=== PATIENT | female | born 1935 | race Caucasian/White ===

== ENCOUNTER 2021-10-20 09:49 | Inpatient (IN) | payer MEDICARE, OTHER ==
[~2021-10-20 09:49] MED LIST: Iopamidol 300 61% 100 ML VIAL FS ONE
[2021-10-20 10:16] LABS: #Basophils 0.1 10x3/uL (0.0-0.2); #Eosinphils 0.2 10x3/uL (0.0-0.5); #Monocytes 0.7 10x3/uL (0.0-1.1); #Neutrophils 5.1 10x3/uL (1.5-8.4); %Basophils 0.7 % (0.0-2.0); %Eosinophils 2.4 % (0.0-6.0); %Lymphocytes 30.3 % (18.0-47.0); %Monocytes 7.5 % (0.0-10.0); %Neutrophils 58.8 % (40.0-75.0); Hemoglobin 13.8 g/dL (12.0-15.5); Mean Corpuscular HGB CONC 33.3 g/dL (32.0-36.0); Mean Corpuscular Hemoglobin 30.5 pg (27.0-33.0); Mean Corpuscular Volume 91.6 fl (81.6-98.3); Mean Platelet Volume 10.8 fl (7.4-10.4); Platelet Count 239 10x3/uL (150-450); RBC Distribution Width 13.1 % (11.5-14.5); Red Blood Cell (RBC) Count 4.52 10x6/uL (3.90-5.03); White Blood Cell (WBC) Count 8.7 10x3/uL (3.5-10.5)
[2021-10-20 10:32] LABS: ALT (SGPT) 20 U/L (8-55); AST (SGOT) 15 U/L (5-34); Albumin 4.1 g/dL (3.4-4.8); Alkaline Phosphatase 63 U/L (40-110); Anion Gap 16 mmol/L (10-20); BUN (Urea Nitrogen) 28 mg/dL (9.8-20.1); Bilirubin, Total 0.6 mg/dL (0.2-1.2); Calc. Creatinine Clearance 0 mL/min (70-130); Calcium 9.5 mg/dL (7.8-10.44); Carbon Dioxide 22 mmol/L (23-31); Chloride 107 mmol/L (98-107); Globulin 2.9 g/dL (2.4-3.5); Glucose 153 mg/dL (83-110); Lipase 33 U/L (8-78); Potassium 4.8 mmol/L (3.5-5.1); Sodium 140 mmol/L (136-145)
[2021-10-20] MEDS ORDERED: Meclizine HCl 25 MG TAB ONE (11:32)
[2021-10-20] MEDS ORDERED: Diazepam 5 MG TAB ONE (11:32)
[2021-10-20] MEDS ORDERED: Ondansetron PF 4 MG/2 ML Vial IVP PRN (14:39)
[2021-10-20] MEDS ORDERED: Ondansetron ODT 4 MG TAB PO PRN (14:39)
[2021-10-20] MEDS ORDERED: Albuterol Sulfate 2.5 mg/3 ml Neb NEB PRN (14:44)
[2021-10-20 14:46] LABS: Bilirubin Neg (Negative); Blood, Urine Negative (Negative); Clarity Clear (Clear); Glucose, Urine (Dipstick) Normal (Negative); Ketone, Urine Negative (Negative); Leukocyte 500 (Negative); Nitrite Negative (Negative); Protein, Urine (Dipstick) Negative (Neg-Trace); Specific Gravity, Urine 1.015 (1.002-1.036); Urobilinogen Normal mg/dL (Less than 2)
[2021-10-20 15:00] LABS: Bacteria/HPF None Seen HPF (None Seen); RBC/HPF None Seen HPF (0-3); Squamous Epithelial 0-3 HPF (0-3); WBC/HPF 0-3 HPF (0-3)
[2021-10-20] MEDS ORDERED: Aspirin 81 mg Enteric Coated Tablet PO SCH (15:00)
[2021-10-20] MEDS ORDERED: Dicyclomine 10 MG CAP PO PRN (15:43)
[2021-10-20 15:54] VITALS: BMI 31.7
[2021-10-20 17:18] LABS: Magnesium 1.7 mg/dL (1.6-2.6)
[2021-10-20] MEDS: Sodium Chloride 0.9% 1,000 ML IV SCH (17:18)
[2021-10-20 17:24] LABS: Troponin I Less than 0.010 ng/mL (< 0.028)
[2021-10-20 17:36] LABS: SARS-CoV-2 NAA Rapid Test Not Detected (NotDetected)
[2021-10-20 19:10] LABS: Troponin I Less than 0.010 ng/mL (< 0.028)
[2021-10-20] MEDS: Atorvastatin Calcium 40 MG TAB PO SCH (21:04)
[2021-10-21 04:45] LABS: #Basophils 0.1 10x3/uL (0.0-0.2); #Eosinphils 0.3 10x3/uL (0.0-0.5); #Monocytes 0.8 10x3/uL (0.0-1.1); #Neutrophils 4.3 10x3/uL (1.5-8.4); %Basophils 0.6 % (0.0-2.0); %Eosinophils 3.1 % (0.0-6.0); %Lymphocytes 37.9 % (18.0-47.0); %Monocytes 9.1 % (0.0-10.0); %Neutrophils 49.1 % (40.0-75.0); Hemoglobin 12.4 g/dL (12.0-15.5); Mean Corpuscular HGB CONC 32.6 g/dL (32.0-36.0); Mean Corpuscular Hemoglobin 30.3 pg (27.0-33.0); Mean Corpuscular Volume 92.9 fl (81.6-98.3); Mean Platelet Volume 10.9 fl (7.4-10.4); Platelet Count 249 10x3/uL (150-450); RBC Distribution Width 13.3 % (11.5-14.5); Red Blood Cell (RBC) Count 4.09 10x6/uL (3.90-5.03); White Blood Cell (WBC) Count 8.8 10x3/uL (3.5-10.5)
[2021-10-21 04:56] LABS: Anion Gap 14 mmol/L (10-20); BUN (Urea Nitrogen) 26 mg/dL (9.8-20.1); Calc. Creatinine Clearance 39 mL/min (70-130); Calcium 9.3 mg/dL (7.8-10.44); Carbon Dioxide 22 mmol/L (23-31); Cardiac Risk 4.9 (Less than 4.5); Chloride 109 mmol/L (98-107); Cholesterol 167 mg/dl (< 200 Desired); Glucose 112 mg/dL (83-110); HDL Cholesterol 34 mg/dL (>60 Neg Risk); LDL Cholesterol, Calculated 83 mg/dL; Potassium 4.4 mmol/L (3.5-5.1); Sodium 141 mmol/L (136-145); Triglycerides 249 mg/dL (Less than 150)
[2021-10-21] MEDS: Sodium Chloride 0.9% 1,000 ML IV SCH (05:09)
[2021-10-21] MEDS ORDERED: Aspirin 81 mg Enteric Coated Tablet PO SCH ×2 (09:00→21:00)
[2021-10-21] MEDS: Acetaminophen 325 MG TAB PO PRN ×2 (09:50→20:53)
[2021-10-21 12:26] LABS: Hemoglobin A1c 6.6 % (4.0-6.0)
[2021-10-21] MEDS: Atorvastatin Calcium 40 MG TAB PO SCH (20:53)
[2021-10-21] MEDS ORDERED: Atorvastatin Calcium 10 MG TAB PO SCH (21:00)
[2021-10-22] MEDS: Acetaminophen 325 MG TAB PO PRN (00:34)
[2021-10-22 08:27] LABS: #Basophils 0.1 10x3/uL (0.0-0.2); #Eosinphils 0.3 10x3/uL (0.0-0.5); #Monocytes 0.8 10x3/uL (0.0-1.1); #Neutrophils 3.4 10x3/uL (1.5-8.4); %Basophils 0.8 % (0.0-2.0); %Eosinophils 3.9 % (0.0-6.0); %Lymphocytes 42.6 % (18.0-47.0); %Monocytes 10.1 % (0.0-10.0); %Neutrophils 42.3 % (40.0-75.0); Hemoglobin 12.4 g/dL (12.0-15.5); Mean Corpuscular HGB CONC 32.8 g/dL (32.0-36.0); Mean Corpuscular Hemoglobin 30.5 pg (27.0-33.0); Mean Corpuscular Volume 92.9 fl (81.6-98.3); Mean Platelet Volume 10.7 fl (7.4-10.4); Platelet Count 223 10x3/uL (150-450); Red Blood Cell (RBC) Count 4.07 10x6/uL (3.90-5.03); White Blood Cell (WBC) Count 7.9 10x3/uL (3.5-10.5)
[2021-10-22 08:46] LABS: Anion Gap 13 mmol/L (10-20); BUN (Urea Nitrogen) 25 mg/dL (9.8-20.1); Calc. Creatinine Clearance 37 mL/min (70-130); Calcium 9.1 mg/dL (7.8-10.44); Carbon Dioxide 25 mmol/L (23-31); Chloride 108 mmol/L (98-107); Glucose 120 mg/dL (83-110); Sodium 141 mmol/L (136-145)
[2021-10-22] MEDS ORDERED: PLECANATIDE 3 MG PO SCH (09:00)
[2021-10-22] MEDS ORDERED: Clopidogrel Bisulfate 75 MG TAB PO SCH (09:00)
[2021-10-22] MEDS ORDERED: Losartan Potassium 50 MG TAB PO SCH (09:00)
[2021-10-22] MEDS ORDERED: Escitalopram Oxalate 20 mg Tablet PO SCH (09:00)
[2021-10-22] MEDS ORDERED: Aspirin 81 mg Enteric Coated Tablet PO SCH (09:00)
[2021-10-22 12:07] VITALS: BP 122/58; TEMP 97.1
== END 2021-10-22 16:59 | disposition home or self-care (01) | DRG 312 ==
LOC: CSHERS 09:49 → CSHTELE 15:31 → OBSVTOIN 10-22 10:16
PROVIDERS: ADMIT Hospitalist; ATTEND Nurse Practitioner Acute Care
DX: R55 Syncope and collapse (principal); N17.9 Acute kidney failure, unspecified; R42 Dizziness and giddiness; R00.1 Bradycardia, unspecified; E78.5 Hyperlipidemia, unspecified; J45.909 Unspecified asthma, uncomplicated; I25.10 Atherosclerotic heart disease of native coronary artery without angina pectoris; I12.9 Hypertensive chronic kidney disease with stage 1 through stage 4 chronic kidney disease, or unspecified chronic kidney disease; N18.30 Chronic kidney disease, stage 3 unspecified; E11.22 Type 2 diabetes mellitus with diabetic chronic kidney disease; J32.3 Chronic sphenoidal sinusitis; K76.0 Fatty (change of) liver, not elsewhere classified; E11.65 Type 2 diabetes mellitus with hyperglycemia; E78.1 Pure hyperglyceridemia; Z20.822 Contact with and (suspected) exposure to COVID-19; Z79.01 Long term (current) use of anticoagulants; Z95.5 Presence of coronary angioplasty implant and graft; Z79.899 Other long term (current) drug therapy; Z90.710 Acquired absence of both cervix and uterus; Z79.82 Long term (current) use of aspirin; Z90.49 Acquired absence of other specified parts of digestive tract; I25.2 Old myocardial infarction; Z98.890 Other specified postprocedural states; Z86.018 Personal history of other benign neoplasm; Z82.49 Family history of ischemic heart disease and other diseases of the circulatory system
CPT/HCPCS: 36415; 70450; 70551; 71045; 71260; 80048; 80053; 80061; 81003; 81015; 83036; 83690; 83735; 84443; 84484; 85025; 93005; 93010; 93306; 93880; 94760; G0378; J7050; Q9967; U0002